=== PATIENT | male | born 1985 | race African-American/Black ===

== ENCOUNTER 2025-02-09 19:32 | Emergency (ER) | payer MEDICAID, OTHER ==
[~2025-02-09] VITALS: Ht 185.4 cm; Wt 142.7 kg
[2025-02-09 19:45] VITALS: BP 125/74; RESP 18; TEMP 98.9; O2SAT 96
--- NOTE | 2025-02-09 20:36 | ED.PDOC ---
HPI Comments 39 y.o male presents to the ED for an evaluation of an irregular heart rate. Patient reports he went to urgent care for right wrist pain/injury and was told his heart rate was abnormal, ultimately being sent to the ED for further evaluation. EKG performed at urgent Care showed frequent PVCs. Patient does mention intermittent episodes of chest pain, SOB on exertion and syncope for the past couple of months. Patient did have a PCP appointment 2-3 months ago, was told he needed a full cardiac workup due to his arrhythmia but never followed up. Patient denies SOB at rest and denies chest pain at this time. He reports occasional alcohol and vaping use with no substance use hx. Patient denies any medical history of allergies. Chief Complaint: Shortness of Breath Time Seen by MD: 20:24 Reviewed Notes: Nurses Notes, Medications, Allergies Allergies: Coded Allergies: NO KNOWN ALLERGIES (Unverified , 02/09/25) Information Source: Patient Mode of Arrival: Ambulatory Severity: Moderate Timing: Months Duration: Since onset Location: Substernal Radiation: No Radiation Quality: Aching Onset: At Rest Cardiac Risk Factors: None PE Risk Factors: None History of: Similar pain in past Modifying Factors: Nothing Associated Signs and Symptoms: SOB Past Medical History PAST MEDICAL HISTORY: Denies Surgical History: Denies all surgeries Family History Family History: Reviewed,noncontributory to illness Social History Smoker: Other (vape ) Alcohol: Occasionally Drugs: Denies Drug Use Lives In: Home Constitutional: denies: chills, diaphoresis, fatigue, fever, malaise, sweats, weakness, others EENTM: denies: blurred vision, double vision, ear bleeding, ear discharge, ear drainage, ear pain, ear ringing, eye pain, eye redness, hearing loss, mouth pain, mouth swelling, nasal discharge, nose bleeding, nose congestion, nose pain, photophobia, tearing, throat pain, throat swelling, voice changes, others Respiratory: reports: SOB with excertion; denies: cough, hemoptysis, orthopnea, SOB at rest, shortness of breath, stridor, wheezing, others Cardiovascular: reports: chest pain, irregular heart beat; denies: dizzy spells, diaphoresis, Dyspnea on exertion, edema, left arm pain, lightheadedness, palpitations, PND, syncope, others Gastrointestinal: denies: abdomen distended, abdominal pain, blood streaked bowels, constipated, diarrhea, dysphagia, difficulty swallowing, hematemesis, melena, nausea, poor appetite, poor fluid intake, rectal bleeding, rectal pain, vomiting, others Genitourinary: denies: burning, dysuria, flank pain, frequency, hematuria, incontinence, penile discharge, penile sore, pain, testicle pain, testicle swelling, urgency, others Neurological: denies: dizziness, fainting, headache, left sided numbness, left sided weakness, numbness, paresthesia, pre-existing deficit, right sided numbness, right sided weakness, seizure, speech problems, tingling, tremors, weakness, others Musculoskeletal: denies: back pain, gout, joint pain, joint swelling, muscle pain, muscle stiffness, neck pain, others Integumetry: denies: bruises, change in color, change in hair/nails, dryness, laceration, lesions, lumps, rash, wounds, others Allergic/Immunocompromised: denies: Difficulty Healing, Frequent Infections, Hives, Itching, others Hematologic/Lymphatic: denies: anemia, blood clots, easy bleeding, easy bruising, swollen glands, others Endocrine: denies: excessive hunger, excessive sweating, excessive thirst, excessive urination, flushing, intolerance to cold, intolerance to heat, unexplained weight gain, unexplained weight loss, others Psychiatric: denies: anxiety, bipolar disorder, depression, hopeless, panic disorder, schizophrenia, sleepless, suicidal, others All Other Systems: Reviewed and Negative Physical Exam General Appearance: No Apparent Distress HEENT: Other (Pupils and face symmetric. Moist mucous membranes.) Neck: Full Range of Motion, Normal Inspection Respiratory: Lungs Clear, No Accessory Muscle Use, No Respiratory Distress, Normal Breath Sounds Cardiovascular: Irregular, No Edema, No JVD Breast Exam: Deferred Gastrointestinal: Non Tender, Soft Genitalia: Deferred Pelvic: Deferred Rectal: Deferred Extremities: Normal inspection, Normal range of motion, Non-tender, No pedal edema Neurologic: Alert (Oriented x4), Normal Affect, Normal Mood, Other (Ambulatory) Cerebellar Function: NOT DONE Reflexes: NOT DONE Skin: Dry, Normal Color, Warm Lymphatic: NOT DONE EKG EKG #1: Comments Sinus rhythm, rate 80, multiple PVCs, normal intervals, indeterminate axis, possible right ventricular conduction delay, nonspecific T change EKG #2: Comments Sinus rhythm, rate 81, normal intervals, indeterminate axis, ventricular trigeminy, incomplete right bundle-branch block, nonspecific T change. Was a procedure done? Was a procedure done?: No CP Differential Dx Differential Diagnosis: Angina, Electrolyte Disorder, PVC's, Ventricular Dysrhythmia, V-Tach Differential Diagnosis: CHF Differential Diagnosis: Angina, Chest Wall Pain, Costochondritis, Myocardial Infarction, Pericarditis, Pulmonary Embolus X-Ray, Labs, Meds, VS Vital Signs Date Time Temp Pulse Resp B/P (MAP) Pulse Ox O2 Delivery O2 Flow Rate FiO2 02/09/25 21:11 81 02/09/25 20:17 80 02/09/25 19:45 98.9 68 18 125/74 (91) 96 98.9 Lab Test 02/09/25 20:30 Range/Units White Blood Count 6.7 4.4-10.8 10^3/uL Red Blood Count 5.36 4.5-5.90 10^6/uL Hemoglobin 16.3 13.5-17.5 g/dL Hematocrit 47.4 41.0-53.0 % Mean Corpuscular Volume 88.6 80.0-100.0 fL Mean Corpuscular Hemoglobin 30.5 28.0-32.0 pg Mean Corpuscular Hemoglobin Concent 34.4 32.0-36.0 g/dL Red Cell Distribution Width 13.4 11.8-14.3 % Platelet Count 347 140-450 10^3/uL Mean Platelet Volume 7.6 6.9-10.8 fL Neutrophils (%) (Auto) 47.9 37.0-80.0 % Lymphocytes (%) (Auto) 42.1 10.0-50.0 % Monocytes (%) (Auto) 7.5 0.0-12.0 % Eosinophils (%) (Auto) 1.6 0.0-7.0 % Basophils (%) (Auto) 0.9 0.0-2.0 % Neutrophils # (Auto) 3.2 1.6-8.6 10 ^3/uL Lymphocytes # (Auto) 2.8 0.4-5.4 10 ^3/uL Monocytes # (Auto) 0.5 0-1.3 10 ^3/uL Eosinophils # (Auto) 0.1 0-0.8 10 ^3/uL Basophils # (Auto) 0.1 0-0.2 10 ^3/uL Nucleated Red Blood Cells 0.2 % Sodium Level 142 136-145 mmol/L Potassium Level 3.6 3.5-5.1 mmol/L Chloride Level 107 98-107 mmol/L Carbon Dioxide Level 25 20-31 mmol/L Anion Gap 10 5-15 Blood Urea Nitrogen 7 L 9-23 mg/dL Creatinine 0.88 0.700-1.30 mg/dL Glomerular Filtration Rate Calc 114 >90 mL/min BUN/Creatinine Ratio 8.0 L 10.0-20.0 Serum Glucose 113 H 74-106 mg/dL Calcium Level 10.3 8.7-10.4 mg/dL Troponin I High Sensitivity 3 L </=54 ng/L B-Type Natriuretic Peptide 4.49 0-100 pg/mL X-Ray, Labs, Meds, VS Comment 39-year-old male with no significant past medical history referred by urgent care for evaluation of an arrhythmia. Patient reports chest pain, shortness of breath and syncope intermittently for the past several months. Vitals unremarkable Exam remarkable for an irregular heart rhythm Rhythm strip independently interpreted by me: Sinus rhythm, rate 80, multiple PVCs Chest x-ray independently interpreted by me: Cardiac silhouette normal size, no definite infiltrate or effusion, normal mediastinal width, grossly normal bony thorax, no free air, no pneumothorax. CBC, metabolic panel, BNP and troponin unremarkable No acute treatment indicated in the ED. Plan is to admit the patient for Cardiology evaluation. Time of 1ST Reevaluation: 20:31 Reevaluation 1ST: Unchanged Patient Education/Counseling: Diagnosis, Treatment, Prognosis Family Education/Counseling: No Family Present Departure 1 Departure Time of Disposition: 21:35 Impression: Primary Impression: Ventricular trigeminy Disposition: ADMITTED INPATIENT Admit to: Tele Condition: Guarded Critical Care Note Critical Care Time?: No Stability Stability form required: No Heart Score Heart Score: Heart Score Response (Comments) Value History Moderate Suspicious 1 EKG Repolarization Disturb 1 Age <45 0 Risk Factors No known risk factors 0 Troponin Normal limit 0 Total 2 I personally scribed for HOLLIE TAI MD ([email or web address]) on 02/09/25 at 20:36. Electronically submitted by Judi Huggins ([facility]). HOLLIE TAI MD Feb 09, 2025 20:36
[2025-02-09 20:44] LABS: Basophils # (auto) 0.1 10 ^3/uL (0-0.2); Basophils % (auto) 0.9 % (0.0-2.0); Eosinophils # (auto) 0.1 10 ^3/uL (0-0.8); Eosinophils % (auto) 1.6 % (0.0-7.0); Hematocrit 47.4 % (41.0-53.0); Hemoglobin 16.3 g/dL (13.5-17.5); Lymphocytes # (auto) 2.8 10 ^3/uL (0.4-5.4); Lymphocytes % (auto) 42.1 % (10.0-50.0); Mean Corpuscular Hemoglobin 30.5 pg (28.0-32.0); Mean Corpuscular Hgb Conc. 34.4 g/dL (32.0-36.0); Mean Corpuscular Volume 88.6 fL (80.0-100.0); Monocytes # (auto) 0.5 10 ^3/uL (0-1.3); Monocytes % (auto) 7.5 % (0.0-12.0); Neutrophils # (auto) 3.2 10 ^3/uL (1.6-8.6); Neutrophils % (auto) 47.9 % (37.0-80.0); Nucleated Red Blood Cells % 0.2 %; Platelet Count (auto) 347 10^3/uL (140-450); Red Blood Cells 5.36 10^6/uL (4.5-5.90); Red Cell Distribution Width 13.4 % (11.8-14.3); White Blood Cell 6.7 10^3/uL (4.4-10.8)
[2025-02-09 20:53] LABS: Chloride 107 mmol/L (98-107); Potassium 3.6 mmol/L (3.5-5.1); Sodium 142 mmol/L (136-145)
[2025-02-09 20:54] LABS: Anion Gap 10 (5-15); Carbon Dioxide 25 mmol/L (20-31)
[2025-02-09 20:55] LABS: Calcium 10.3 mg/dL (8.7-10.4)
[2025-02-09 21:01] LABS: Blood Urea Nitrogen 7 mg/dL (9-23); Glucose 113 mg/dL (74-106)
[2025-02-09 21:11] VITALS: PULSE 81
--- NOTE | 2025-02-09 21:13 | ECG ---
[facility] Test Date: 2025-02-09 Test Time: 21:11:52 Pat Name: BETO AVILES Department: ED Room: Gender: M [employer] Counsel[employer]: BRYSON : 1985 Requested By: HOLLIE COX Order Number: [id number] Reading MD: Jaison Jay Measurements Intervals [place] Rate: 81 P: 67 DE: 151 QRS: 59 QRSD: 113 T: 17 QT: 379 QTc: 440 Interpretive Statements Sinus rhythm Ventricular trigeminy Incomplete right bundle branch block Electronically Signed On 02-11-2025 21:04:30 PDT by Jaison Jay Please click the below link to view image of tracing.
--- NOTE | 2025-02-09 21:41 | DVH ---
CHEST RADIOGRAPH Indication: sob Technique: Single frontal view of the chest was obtained Comparison: None FINDINGS: Lines and Tubes: None Lungs: No focal consolidation. Pleura: No effusion. No pneumothorax. Cardiomediastinal contours: Unremarkable Bones: No acute osseous abnormality. IMPRESSION: 1. No acute cardiopulmonary disease.
[2025-02-09 22:31] LABS: Urine Bacteria None Seen /hpf (None Seen)
[2025-02-09 22:36] LABS: Urine Blood Negative /uL (Negative); Urine Clarity Clear (Clear); Urine Color Yellow (Yellow); Urine Mucus FEW (None Seen); Urine Protein, UAD Negative (Negative); Urine Specific Gravity 1.026 (1.001-1.035); Urine Squamous Epithelial Cell FEW /hpf (<5); Urine Urobilinogen 2 mg/dL (Negative); Urine WBC 3 /HPF (0-3); Urine pH 5.5 (5.0-9.0)
--- NOTE | 2025-02-10 10:59 | ECG ---
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
== END 2025-02-09 22:50 | disposition left against medical advice (07) ==
LOC: ER 19:32
DX: R00.8 Other abnormalities of heart beat (principal); M25.531 Pain in right wrist; R06.02 Shortness of breath; F17.290 Nicotine dependence, other tobacco product, uncomplicated
CPT/HCPCS: 36415; 71045; 80048; 81001; 83880; 84484; 85025; 93005